=== PATIENT | female | born 1980 | race Caucasian/White ===

== ENCOUNTER 2018-09-08 18:54 | Outpatient (CLI) | payer MEDICAID ==
[~2018-09-08] VITALS: Ht 160 cm; Wt 87.7 kg
[~2018-09-08 18:54] MED LIST: FERR27TA PO; PREN1TAB49 PO
[2018-09-08 19:37] VITALS: BP 124/59; PULSE 81; RESP 18
[2018-09-08 19:38] VITALS: Ht 160 cm; Wt 87.7 kg
[2018-09-08] MEDS ORDERED: FER325 PO (22:43)
--- NOTE | 2018-09-09 00:09 | PN ---
Triage Information Date/Time September 08, 2018 Reason for visit: Patient here today for NST/BPP due to advanced maternal age was sent by primary OB clinic Weeks of Gestation 38 weeks /Para 8 para 6 Diabetes: none Hypertention: none Additional information 38-year-old with IUP at 38 weeks and advanced maternal age care with [facility] as scheduled today for NST/BPP. Patient denies any leaking of fluid, vaginal bleeding decreased movements. Antepartum course was complicated by iron deficiency anemia as well as Rh-, AMA and grand multiparous Status post RhoGam at 28 weeks. Has been on vitamin but no iron. She declined amniocentesis and NIPT. Serum integrated test was negative x4. Objective Vital Signs Date Temp Pulse Resp B/P (MAP) Pulse Ox O2 O2 Flow FiO2 Time Delivery Rate 09/08/18 98.8 81 18 124/59 Room Air 19:37 (80) Heart Rate: 130's Heart Rate Comments Category 1 and reassuring Contractions: None Exam General appearance: Alert and oriented x4 does not appear to be in any acute distress\ Abdomen: Soft, gravid, fundal height consider gestational age NST: Category 1 Estimated weight: 48 percentile BPP: 04/07 Labs reviewed. labs shows iron deficiency anemia. Apparently per records 1 hour glucose test was done. No GDM in problem list Random blood sugar was within normal limits Results/Medications Results 24 hrs Laboratory Tests Test 09/08/18 23:09 Hemoglobin A1c 6.1 H Iron Level 30 L Total Iron Binding Capacity 507 H Percent Iron Saturation 6 L Imaging Results PROCEDURE: Obstetrical ultrasound for biophysical profile CLINICAL INDICATION: Biophysical profile. . TECHNIQUE: Obstetrical ultrasound of the uterus for biophysical profile. Transabdominal views are obtained. COMPARISON: 09/08/2018 FINDINGS: Single intrauterine gestation. Presentation: Cephalic. Placenta: Right - anterior No evidence of placental abruption. No evidence of placenta previa. breathing movement = 2/2 tone = 2/2 motion = 2/2 FRANKIE = 2/2 FRANKIE = 16.9 cm heart rate: 140 beats per minute IMPRESSION: Single intrauterine gestation. Biophysical profile 04/07 PROCEDURE: Obstetrical ultrasound. CLINICAL INDICATION: , evaluation. Pelvic pain. Macrosomia TECHNIQUE: Transabdominal sonographic images of the uterus obtained after first trimester, greater than 14 weeks gestation. Single intrauterine gestation present. Complete anatomic survey is not performed in this examination; if needed an additional dedicated examination can be performed for complete anatomic survey. COMPARISON: US 05/14/2018 FINDINGS: Single intrauterine gestation. There is a cephalic presentation. Measurements were made in order to determine age. The results are as follows: BPD = 35 weeks 1 day(s) HC = 35 weeks 3 day(s) AC = 38 weeks 5 day(s) FL = 37 weeks 0 day(s) FRANKIE (cm) = not measured Heart rate = 150 beats per minute The placenta is anterior. There is no evidence for an abruption or placenta previa. Ovaries are not visualized. IMPRESSION: Single intrauterine gestation of approximately 36 weeks 4 days by ultrasound criteria. [place] estimated weight = 3221 g; 48 percentile for gestational age of 38 weeks 0 days. Disposition: Discharge Assessment/Plan IUP at 38 weeks Advanced maternal age Grand multiparous testing reassuring Rh-, status post RhoGam Iron deficiency anemia. Advised patient to take iron twice a day with stool softener Records reviewed. Random blood sugar noted. No GDM testing noted. Estimated weight in normal range Hemoglobin A1c: 6.1 cannot rule out GDM Patient advised to continue NST twice a week in triage and keep her follow-up appointment with her primary OB for final plan for delivery Strict labor precautions kick count discussed with the patient. All questions were answered to patient's best satisfaction. TANGELA BOYER MD Sep 09, 2018 00:09
--- NOTE | 2018-09-09 00:44 | TRIAGE ---
OB Triage Datetime Report Generated by CPN: 09/09/2018 00:44 Datetime: 09/09/2018 23:05 Stage of : OB Triage Datetime: 09/08/2018 22:04 Stage of : OB Triage Labor Evaluation Frequency: Occasional Monitor Mode: External Pattern: Normal: <= 5 Contractions in 10 Minutes Resting Tone [place]: Relaxed Heart Rate FHR Baseline Rate: 150 Monitor Mode: External US Variability: Moderate 6-25 bpm Accelerations: Prolonged Decelerations: None Category: Category I Pain Assessment Pain Scale: 0 Pain Presence: None/Denies Pain Type: N/A Pain Relief Measures: Comfort Measures Datetime: 09/08/2018 21:49 Stage of : OB Triage Vaginal Exam Dilatation (cms): 1.0 Effacement (%): 50 Station: -2 Exam By: LANG, RN Datetime: 09/08/2018 21:01 Stage of : OB Triage Monitor Mode: External US Variability: Moderate 6-25 bpm Comments: Unable to determine baseline at this time. Datetime: 09/08/2018 20:01 Labor Evaluation Frequency: Irregular Monitor Mode: External Pattern: Normal: <= 5 Contractions in 10 Minutes Resting Tone [place]: Relaxed Heart Rate FHR Baseline Rate: 145 Monitor Mode: External US Variability: Moderate 6-25 bpm Accelerations: Prolonged Decelerations: None Category: Category I Pain Assessment Pain Scale: 0 Pain Presence: None/Denies Pain Type: N/A Pain Relief Measures: Comfort Measures Datetime: 09/08/2018 19:47 Stage of : OB Triage Assessment Type: Triage Maternal Assessment Level of Consciousness: Fully Conscious DTR's/Clonus: DTRs 2+; No Clonus Headache: Denies Blurred Vision: No Respiratory Effort: Unlabored; Regular Rhythm; Equal Expansion Breath Sounds, Left: Clear and Equal Breath Sounds, Right: Clear and Equal Nausea/Vomiting: Denies RUQ Epigastric Pain: Denies Lower Extremities Edema: None Degree: None Upper Extremities Edema: None Degree: None Facial Edema: None Temperature Route: Oral Fall Risk Assessment History of Falling: (0) No Secondary Diagnosis: (0) No Ambulatory Aid: (0) Bedrest/Nurse Assist IV Therapy: (0) No Gait: (0) Normal/Bedrest/Immobile Mental Status: (0) Oriented to Own Ability Fall Score: 0 Fall Risk Score Definition: No Risk: No action required Monitor Mode: External Monitor Mode: External US Datetime: 09/08/2018 19:43 Time of Arrival: 09/08/2018 18:49 EGA: 38.0 Arrived By: Ambulatory Arrived From: Office Movement: Present Contractions: Denies/Absent Rupture of Membranes: Denies Vaginal Bleeding: None Vaginal Discharge: Present Recent Sexual Intercouse: Denies Abdominal Trauma: Not Applicable Patient Complaints: None Time Provider Notified: 09/08/2018 20:35 Provider Notified: [place] Initial Plan: VS, NST, BPP, EFW
== END 2018-09-08 23:12 | disposition home or self-care (01) ==
LOC: OBT 18:54 → L-D 18:56 → OBT 23:12
PROVIDERS: ATTEND Obstetrics & Gynecology
DX: O36.8330 Maternal care for abnormalities of the fetal heart rate or rhythm, third trimester, not applicable or unspecified (principal); O09.43 Supervision of pregnancy with grand multiparity, third trimester; O09.523 Supervision of elderly multigravida, third trimester; Z3A.36 36 weeks gestation of pregnancy
CPT/HCPCS: 76815; 76818; 82728; 83036; 83540; Z7500; G0463

== ENCOUNTER 2018-09-13 20:50 | Outpatient (CLI) | payer MEDICAID ==
[~2018-09-13] VITALS: Ht 157.5 cm; Wt 88.5 kg
[~2018-09-13 20:50] MED LIST changes: +FER325 PO; -FERR27TA PO
[2018-09-13 21:28] VITALS: BP 120/69; PULSE 80; RESP 16
--- NOTE | 2018-09-13 22:19 | PN ---
Triage Information Date/Time Sep 13, 2018 Reason for visit: pelvic pressure and f/u from prior visit Weeks of Gestation 38w 6d /Para 8/6 Diabetes: none Hypertention: none Additional information Pt was here a few days ago to r/o macrosomia and the EFW was 3231 grams. Pt does report some pelvic pressure as well. PMHx: none. PSHx: none. POBHx: x 6 with the last one 6 years ago. NKDA. Objective Vital Signs Date Temp Pulse Resp B/P (MAP) Pulse Ox O2 O2 Flow FiO2 Time Delivery Rate 09/13/18 97.8 80 16 120/69 Room Air 21:28 (86) Heart Rate: 130's Heart Rate Comments Accels to 160 bpm. No decels. Contractions: None Exam CX 50%/2/-3 Disposition: Discharge Assessment/Plan A: IUP at 38w 6d. False labor. P: Pt to be d/c'ed home and is to return to her clinic by 09/16 at the latest for f/u. Labor precautions reviewed. JASON GALLAGHER MD Sep 13, 2018 22:19
--- NOTE | 2018-09-14 05:10 | TRIAGE ---
OB Triage Datetime Report Generated by CPN: 09/14/2018 02:34 Datetime: 09/13/2018 22:07 Stage of : OB Triage Quality: Mild Pattern: Normal: <= 5 Contractions in 10 Minutes Resting Tone [place]: Relaxed Heart Rate FHR Baseline Rate: 140 Monitor Mode: External US FHR Baseline Changes: No Baseline Change Variability: Moderate 6-25 bpm Accelerations: 15X15 Decelerations: None Category: Category I Vaginal Exam Dilatation (cms): 2.0 Effacement (%): 50 Station: -3 Exam By: Dr Benito Membrane Status: Intact Vaginal Bleeding: None Cervix, Consistency: Soft Cervix, Position: Posterior Presentation 'A': Cephalic Datetime: 09/13/2018 21:35 Time of Arrival: 09/13/2018 20:43 EGA: 38.5 Arrived By: Ambulatory Arrived From: Home Chief Complaint: presents w/ order for follow up NST Movement: Present Contractions: Denies/Absent Rupture of Membranes: Denies Vaginal Bleeding: None Vaginal Discharge: Denies Recent Sexual Intercouse: Denies Abdominal Trauma: Not Applicable Patient Complaints: None Time Provider Notified: 09/14/2018 21:00 Provider Notified: Dr Benito Initial Plan: NST Datetime: 09/13/2018 21:28 Labor Evaluation Monitor Mode: External Quality: Mild Pattern: Normal: <= 5 Contractions in 10 Minutes Resting Tone [place]: Relaxed Contraction Comments: Pt denies feeling discomfort Heart Rate FHR Baseline Rate: 130 Monitor Mode: External US FHR Baseline Changes: No Baseline Change Variability: Moderate 6-25 bpm Accelerations: 15X15 Decelerations: None Category: Category I Datetime: 09/13/2018 20:58 Stage of : OB Triage Maternal Assessment Level of Consciousness: Fully Conscious Headache: Denies Blurred Vision: No Respiratory Effort: Unlabored Nausea/Vomiting: Denies RUQ Epigastric Pain: Denies Facial Edema: None Labor Evaluation Monitor Mode: External Resting Tone [place]: Relaxed Heart Rate FHR Baseline Rate: 140 Monitor Mode: External US Pain Assessment Pain Scale: 0 Pain Presence: None/Denies Pain Type: N/A Datetime: 09/08/2018 19:47 Fall Risk Assessment Fall Score: 0 Fall Risk Score Definition: No Risk: No action required Datetime: 09/08/2018 19:43 EGA: 38.0
== END 2018-09-13 22:20 | disposition home or self-care (01) ==
LOC: L-D 20:50 → OBT 20:50
PROVIDERS: ATTEND Obstetrics & Gynecology
DX: O47.1 False labor at or after 37 completed weeks of gestation (principal); O09.523 Supervision of elderly multigravida, third trimester; Z3A.38 38 weeks gestation of pregnancy
CPT/HCPCS: G0463

== ENCOUNTER 2018-09-21 12:58 | Inpatient (IN) | payer MEDICAID ==
[~2018-09-21] VITALS: Ht 157.5 cm; Wt 88.7 kg
[2018-09-21 13:11] VITALS: BP 133/60; PULSE 82; RESP 18; Ht 157.5 cm; Wt 88.7 kg
--- NOTE | 2018-09-21 14:41 | TRIAGE ---
OB Triage Datetime Report Generated by CPN: 09/21/2018 14:41 Datetime: 09/21/2018 13:17 Assessment Type: Triage Maternal Assessment Level of Consciousness: Fully Conscious DTR's/Clonus: DTRs 2+; No Clonus Headache: Denies Blurred Vision: No Respiratory Effort: Unlabored; Regular Rhythm; Equal Expansion Breath Sounds, Left: Clear and Equal Breath Sounds, Right: Clear and Equal Nausea/Vomiting: Denies RUQ Epigastric Pain: Denies Lower Extremities Edema: None Degree: None Upper Extremities Edema: None Degree: None Facial Edema: None Fall Risk Assessment History of Falling: (0) No Secondary Diagnosis: (0) No Ambulatory Aid: (0) Bedrest/Nurse Assist IV Therapy: (0) No Gait: (0) Normal/Bedrest/Immobile Mental Status: (0) Oriented to Own Ability Fall Score: 0 Fall Risk Score Definition: No Risk: No action required Labor Evaluation Frequency: 0 Pattern: Normal: <= 5 Contractions in 10 Minutes Resting Tone [place]: Relaxed Heart Rate FHR Baseline Rate: 145 Monitor Mode: External US Variability: Moderate 6-25 bpm Accelerations: 15X15 Decelerations: None Category: Category I Datetime: 09/21/2018 13:15 Time of Arrival: 09/21/2018 12:50 EGA: 39.6 Arrived By: Ambulatory Arrived From: Office Chief Complaint: TERM Movement: Present Contractions: Denies/Absent Rupture of Membranes: Denies Vaginal Bleeding: None Vaginal Discharge: Denies Recent Sexual Intercouse: Denies Abdominal Trauma: Not Applicable Patient Complaints: Other Time Provider Notified: 09/21/2018 14:33 Provider Notified: dr buenrostro Initial Plan: NST BPP AND EFW Datetime: 09/13/2018 21:35 EGA: 38.5 Datetime: 09/08/2018 19:47 Fall Score: 0 Fall Risk Score Definition: No Risk: No action required Datetime: 09/08/2018 19:43 EGA: 38.0
[2018-09-21] MEDS ORDERED: MISOPROSTOL 200 MCG TAB PR PRN (15:00)
[2018-09-21] MEDS ORDERED: BUTORPHANOL 2 MG INJ IV PRN (15:00)
[2018-09-21] MEDS ORDERED: CARBOPROST 250 MCG INJ IM PRN (15:00)
[2018-09-21] MEDS ORDERED: OXYTOCIN 30 UNITS/LR 500 ML IV SCH ×3 (15:00)
[2018-09-21] MEDS ORDERED: METHYLERGONOVINE 0.2 MG INJ IM PRN (15:00)
[2018-09-21] MEDS ORDERED: OXYTOCIN 30 UNITS/LR 500 ML IV PRN (15:00)
[2018-09-21] MEDS ORDERED: AMPICILLIN 2 GM/NS (PMX) 100 ML IV ONE (15:00)
[2018-09-21] MEDS ORDERED: IBUPROFEN 600 MG TAB PO PRN (15:00)
[2018-09-21] MEDS ORDERED: LIDOCAINE 1% (MPF) 30 ML INJ INJ PRN (15:00)
[2018-09-21] MEDS: LACTATED RINGER'S 1,000 ML IV SCH ×3 (15:19→21:10)
[2018-09-21] MEDS: AMPICILLIN 1 GM/NS (PMX) 50 ML IV SCH ×2 (19:33→23:45)
[2018-09-21] MEDS ORDERED: FENTAnyl 2MCG/ML-ROPIV 0.2% 100 ML ONE (20:20)
--- NOTE | 2018-09-21 21:17 | PREAC ---
Date/Time of Note Date/Time of Note DATE: 09/21/18 TIME: 21:16 Anesthesia Eval and Record Evaluation Time Pre-Procedure Interview DATE: 09/21/18 TIME: 21:16 Age 38 Sex female NPO: 8 hrs Preoperative diagnosis IUP Planned procedure L&D Past Medical History Past Medical History: None Surgery & Anesthesia Issues No known issue Meds Anticoagulation: No Beta Mor within 24 hr: No Reason Beta Mor not given: Pt. not on B-Mor Reported Medications Ferrous Sulfate* (Ferrous Sulfate*) 325 Mg Tabec, 325 MG PO BID, TAB 09/08/18 Vits W-Ca,Fe,Fa(<1MG) () 1 Tab Tablet, 1 TAB PO DAILY 03/17/12 Current Medications Lactated Ringer's 1,000 ml @ 125 mls/hr Q8H IV Last administered on 09/21/18at 21:10; Admin Dose 125 MLS/HR; Start 09/21/18 at 14:40 Ampicillin 50 ml @ 100 mls/hr Q4H IV Last administered on 09/21/18at 19:33; Admin Dose 100 MLS/HR; Start 09/21/18 at 19:00 Butorphanol Tartrate (Stadol) 2 mg Q2H PRN IV PAIN; Start 09/21/18 at 15:00 Lidocaine (Xylocaine 1% (Mpf)) 30 ml ONCE PRN INJ PAIN; Start 09/21/18 at 15:00 Oxytocin/Lactated Ringer's 500 ml @ 500 mls/hr ONCE POST IV ; Start 09/21/18 at 15:00 Oxytocin/Lactated Ringer's 500 ml @ 125 mls/hr POST IV ; Start 09/21/18 at 15:00 Ibuprofen (Motrin) 600 mg ONCE PRN PO PAIN; Start 09/21/18 at 15:00 Oxytocin/Lactated Ringer's 500 ml @ 0 mls/hr ONCE PRN IV IV PROTOCOL; Start 09/21/18 at 15:00 Methylergonovine Maleate (Methergine) 0.2 mg ONCE PRN IM BLEEDING; Start 09/21/18 at 15:00 Carboprost Tromethamine (Hemabate) 250 mcg ONCE PRN IM BLEEDING; Start 09/21/18 at 15:00 Misoprostol (Cytotec) 1,000 mcg ONCE PRN [place] BLEEDING; Start 09/21/18 at 15:00 Oxytocin/Lactated Ringer's 500 ml @ 0 mls/hr FOR INDUCTION IV Last administered on 09/21/18at 15:30; Admin Dose 1 MLS/HR; Start 09/21/18 at 15:00 Meds reviewed: Yes Allergies Coded Allergies: No Known Drug Allergy (Verified Allergy, Mild, 09/13/18) Allergies Reviewed: Yes Labs/Studies Labs Reviewed: Reviewed by anesthesiologist Result Diagram: 09/21/18 1538 Laboratory Tests 09/21/18 15:38 Blood Bank Test 09/21/18 15:38 Antibody Screen NEGATIVE Blood Type O NEGATIVE Rh Immune Globulin Candidate NO test: Positive Studies: ECG Pre-procedure Exam Last vitals Vital Signs Date Temp Pulse Resp B/P (MAP) Pulse Ox O2 O2 Flow FiO2 Time Delivery Rate 09/21/18 98.5 82 18 133/60 Room Air 13:11 (84) Airway: Adequate mouth opening, Adequate thyromental dist Mallampati: Mallampati II Teeth: Normal Lung: Normal Heart: Normal ASA Physical Status ASA physical status: 2 Emergency: None Planned Anesthetic Neuraxial: Epidural Planned Pain Management Epidural Pre-operative Attestations Prior to commencing anesthesia and surgery, the patient was re-evaluated, there was verification of: *The patient's identity *The results of appropriate recent lab work and preoperative vital signs *The above evaluation not changing prior to induction *Anesthetic plan, risk benefits, alternative and complications discussed with patient/family; questions answered; patient/family understands, accepts and wishes to proceed. DELROY HERNANDEZ MD Sep 21, 2018 21:17
[2018-09-21] MEDS ORDERED: ONDANSETRON 4 MG INJ IV PRN (21:30)
[2018-09-21] MEDS ORDERED: DIPHENHYDRAMINE 50 MG INJ IV PRN (21:30)
[2018-09-21] MEDS ORDERED: NALOXONE (0.4 MG/ML) INJ IV PRN (21:30)
[2018-09-21] MEDS ORDERED: FENTAnyl 2MCG/ML-ROPIV 0.2% 100 ML BAG EPI SCH (21:30)
[2018-09-22] VITALS (7 sets, daily range): BP systolic 107–155; BP diastolic 55–80; PULSE 55–80; RESP 16–20
--- NOTE | 2018-09-22 00:08 | HP ---
Date/Time of Note Date/Time of Note DATE: 09/22/18 TIME: 00:05 OB - History Hx of Present Chief Complaint: oligohydramnios Estimated Due Date: Sep 22, 2018 : 8 Para: 6 Spontaneous : 1 Therapeutic : 0 Care: Good Care Ultrasounds: Normal mid trimester US Obstetrical Complications: None Medical Complications: None Past Family/Social History * Past Medical, Surgical, Family and Obstetric Histories reviewed from chart. GBS Status: Positive OB Admission Exam Vital Signs Vital Signs Vital Signs Date Temp Pulse Resp B/P (MAP) Pulse Ox O2 O2 Flow FiO2 Time Delivery Rate 09/21/18 98.5 82 18 133/60 Room Air 13:11 (84) Physical Exam HEENT: WNL Heart: Rhythm Normal Lungs: Clear, Equal Abdomen: WNL Extremities: Normal Reflexes: Normal Cervical Dilatation: 1cm Effacement: 50% Station: -1 Membranes: Intact Heart Rate: 120's Accelerations: Accelerations Present Decelerations: No Decelerations Varibility: Moderate Last 72 hours Lab Results CBC & BMP 09/21/18 15:38 OB Assessment/Plan Reason for admission: induction of labor Other Assessment: oligohydramnios Plan: Induction Induction Method: per Pitocin Protocol TONY EDGAR MD Sep 22, 2018 00:08
--- NOTE | 2018-09-22 00:33 | LDN ---
Date/Time of Note Date/Time of Note DATE: 09/22/18 TIME: 00:31 Delivery Summary Weeks of Gestation 40 weeks Placenta Delivered: Spontaneously Meconium: none Episiotomy: No Laceration repair: First degree laceration repaired with 3-0 Vicryl. Anesthesia type: Epidural Estimated blood loss: 200 Sponge & Needle done & correct: Yes All needle counts correct: Yes Any foreign bodies felt in the: No Delivery Information Sex Sex: female Apgars 1 Minute: 8 5 Minute: 9 Suctioning Nose & mouth suctioned at gaby: No Delee suction performed: No Umbilical Cord Umbilical cord with: 3 Vessels Cord presentations: no nuchal cord Cord Blood was obtained: Yes Mother & Baby Disposition Disposition Mom & Baby to Maternity; Good: Yes TONY EDGAR MD Sep 22, 2018 00:33
--- NOTE | 2018-09-22 02:25 | PAC ---
Date/Time of Note Date/Time of Note DATE: 09/22/18 TIME: 02:24 Post-Anesthesia Notes Post-Anesthesia Note Last documented vital signs Vital Signs Date Temp Pulse Resp B/P (MAP) Pulse Ox O2 O2 Flow FiO2 Time Delivery Rate 09/21/18 98.5 82 18 133/60 Room Air 13:11 (84) Activity: WNL Respiratory function: WNL Cardiovascular function: WNL Mental status: Baseline Pain reasonably controlled: Yes Hydration appropriate: Yes Nausea/Vomiting absent: Yes Comments BP:112/58, pulse:78, spo2:100%, T:98,4 DELROY HERNANDEZ MD Sep 22, 2018 02:25
[2018-09-22] MEDS ORDERED: LACTATED RINGER'S 1,000 ML IV* SCH (02:56)
[2018-09-22] MEDS ORDERED: ACETAMINOPHEN 325 MG TAB PO PRN (03:00)
[2018-09-22] MEDS ORDERED: METHYLERGONOVINE 0.2 MG INJ IM PRN (03:00)
[2018-09-22] MEDS ORDERED: MISOPROSTOL 200 MCG TAB PR PRN (03:00)
[2018-09-22] MEDS ORDERED: HYDROCODONE/APAP (5/325) TAB PO PRN (03:00)
[2018-09-22] MEDS ORDERED: CARBOPROST 250 MCG INJ IM PRN (03:00)
[2018-09-22] MEDS: IBUPROFEN 600 MG TAB PO SCH ×3 (05:39→18:00)
[2018-09-22] MEDS: SENNA/DOCUSATE NA (8.6MG/50MG) TAB PO SCH ×2 (09:00→21:00)
[2018-09-22] MEDS ORDERED: INFLUENZA VIRUS VACCINE 0.5 ML (DISPENSING) IM* ONE (10:00)
--- NOTE | 2018-09-22 18:52 | NUR ---
EOSS;CONDITION IS STABLE. AFERILE ALL SHIFT. NO EXCESSIVE BLEEDING NO FURTHER EPISODES OF DIARRHEA. RHOGAM GIVEN. BONDING WELL WITH BABY AND FAMILY
[2018-09-23] MEDS: IBUPROFEN 600 MG TAB PO SCH ×5 (00:01→23:23)
[2018-09-23 00:15] VITALS: BP 107/72; PULSE 72; RESP 18
[2018-09-23 04:28] VITALS: BP 106/59; PULSE 69; RESP 18
--- NOTE | 2018-09-23 05:14 | NUR ---
EOSS: VITAL SIGNS STABLE. NO ACUTE DISTRESS. AMBULATING AND VOIDING WITHOUT DIFFICULTIES. WELL. BONDING WELL WITH BABY. SUPPORTIVE PERSON (DAUGHTER PRESENT AT BEDSIDE).
[2018-09-23 07:20] VITALS: BP 115/62; PULSE 60; RESP 17
[2018-09-23] MEDS: SENNA/DOCUSATE NA (8.6MG/50MG) TAB PO SCH ×2 (09:34→20:42)
--- NOTE | 2018-09-23 12:29 | PN ---
Date/Time of Note Date/Time of Note DATE: 09/23/18 TIME: 12:27 OB Subjective Subjective Subjective Reports decreased vaginal bleeding. Breast-feeding. Denies any pain in lower extremity. Ambulating. Urinated. Denies any dizziness, lightheadedness, shortness of breath or chest pain. OB Objective Objective Objective General appearance: Alert and oriented x4 does not appear to be in any acute distress Abdomen: Soft, fundus firm palpable below the umbilicus and nontender Extremities: No calf tenderness, no click no edema no cord palpable Breast: No evidence of mastitis or fissure Laboratory Tests 09/23/18 06:32 OB Assessment/Plan Other Assessment: Status post day #1 Anemia, bleeding. Controlled with uterotonics. Patient hemodynamically stable. Asymptomatic. Patient diabetes is status was unclear however hemoglobin A1c: 5.6. The normal limits. Doing well. Routine care Iron with vitamin Anticipate DC home tomorrow TANGELA BOYER MD Sep 23, 2018 12:29
[2018-09-23 16:19] VITALS: BP 115/60; PULSE 65; RESP 18
--- NOTE | 2018-09-23 18:02 | NUR ---
EOSS: VSS. AMBULATING AND VOIDING. SHOWERED TODAY. BREAST FEEDING WELL AND GOOD BONDING SEEN WITH BABY.
[2018-09-23 19:45] VITALS: BP 124/67; PULSE 66; RESP 19
[2018-09-24 04:21] VITALS: BP 121/60; PULSE 60; RESP 18
--- NOTE | 2018-09-24 05:17 | NUR ---
EOSS: VITAL SIGNS STABLE. AMBULATING WELL. BONDING WELL WITH BABY.
[2018-09-24] MEDS: IBUPROFEN 600 MG TAB PO SCH ×2 (05:54→11:18)
[2018-09-24 07:30] VITALS: BP 136/74; PULSE 62; RESP 18
[2018-09-24] MEDS ORDERED: DIPHTH/TET/ACEL PERTUSS (ADULT) 0.5 ML VIAL IM* ONE (09:00)
[2018-09-24] MEDS: SENNA/DOCUSATE NA (8.6MG/50MG) TAB PO SCH (09:04)
--- NOTE | 2018-09-24 12:36 | DS ---
Date/Time of Note Date/Time of Note DATE: 09/24/18 TIME: 12:33 Obstetrical Discharge Record Final Diagnosis Final Diagnosis: Term delivered Vaginal Delivery Obstetrical Delivery: Spontaneous, Laceration, Repaired Complications Induction: Yes Rupture of Membranes: No Condition on Discharge Physical Assessment Last Vitals: VSS afebrile Voiding: Yes Bowel Movement: Yes Breast: Soft, non-tender Fundus: Firm Abdomen and Incision: n/a Episiotomy: n/a Calf Tenderness: No Patient Condition: Stable SHAUNA LARIOS MD Sep 24, 2018 12:36
--- NOTE | 2018-09-24 12:37 | PD.PPDC ---
[employer] Discharge Instruction Diagnosis [id number] Final Diagnosis: [id number] S/P Condition [id number] Patient Condition: Dtsop2b Stable Diet [id number] Diet: [id number] Resume Regular Diet Activity/Restrictions [id number] Activity: Hrhho0m May Shower [id number] Restrictions: [id number] No Lifting No Sexual Activity Nothing in the Vagina No [place] No Tampons, douche Follow-up Follow-up with Physician: 2, Week/Weeks Return to clinic for [id number] [employer] Instructions: [id number] Fever greater than 101 Chills Worsening abdominal pain Excessive Vaginal Bleeding More than 2 pads per hour Unable to tolerate diet [id number] OB Instructions: Cmbce0g Breast Tenderness Depression Blurried Vision Headache SHAUNA LARIOS MD Sep 24, 2018 12:37
--- NOTE | 2018-09-24 14:57 | NUR ---
PT DC'D HOME IN STABLE COND WITH BABY VIA WHEELCHAIR. DISCHARGE INST GIVEN AND ALL QUESTIONS ANSWERED AND PT VERBALIZED UNDERSTANDING OF ALL INFO GIVEN. Addendum: 09/24/18 at 1500 by NILAM MCKEON RN Amended: Links added.
== END 2018-09-24 14:30 | disposition home or self-care (01) | DRG 806 ==
LOC: OBT 12:58 → L-D 12:59 → OBT 14:33 → L-D 14:33 → PP1 09-22 02:23
PROVIDERS: ADMIT Obstetrics & Gynecology; ATTEND Obstetrics & Gynecology
PROC: 3E033VJ Introduction of Other Hormone into Peripheral Vein, Percutaneous Approach (ICD-10-PCS; 2018-09-21)
PROC: 10E0XZZ Delivery of Products of Conception, External Approach (ICD-10-PCS; principal; 2018-09-22)
PROC: 0HQ9XZZ Repair Perineum Skin, External Approach (ICD-10-PCS; 2018-09-22)
DX: O41.03X0 Oligohydramnios, third trimester, not applicable or unspecified (principal); O72.1 Other immediate postpartum hemorrhage; Z37.0 Single live birth; D62 Acute posthemorrhagic anemia; O90.81 Anemia of the puerperium; O70.0 First degree perineal laceration during delivery; Z3A.40 40 weeks gestation of pregnancy
CPT/HCPCS: 62319; 76815; 76818; 85025; 85610; 85730; 86592; 86850; 86885; 86900; 86901; 87340; 88307; 90715; G0463; J0290; J2210; J2590; J2790; J3010; J7120